=== PATIENT | male | born 1950 | race Caucasian/White ===

== ENCOUNTER 2019-04-07 18:37 | Observation (INO) ==
[2019-04-07] MEDS ORDERED: Aspirin 81 MG TAB.CHEW PO ONE (18:46)
[2019-04-07] MEDS ORDERED: Isovue-370 500 ML BOTTLE IVP ONE (19:46)
[2019-04-07 20:00] LABS: Basophils % 0.2 %; Eosinophils # 0.1 K/mcL (0.0-0.6); Eosinophils % 0.8 %; Hematocrit 39.4 % (37.5-50.1); Hemoglobin 12.2 g/dL (12.9-16.9); Immature Granulocytes % 0.5 % (0-4); Lymphocytes # 1.5 K/mcL (0.6-4.6); Lymphocytes % 14.3 %; Mean Corpuscular Volume 74.2 fL (83.0-100.0); Mean Platelet Volume 9.3 fL (9.4-12.4); Monocytes # 0.7 K/mcL (0.0-1.3); Monocytes % 6.8 %; Neutrophils # 8.3 K/mcL (1.6-8.9); Platelet Count 577 K/mcL (140-400); Red Blood Count 5.31 M/mcL (4.19-5.50); Red Cell Distribution Width 16.5 % (11.5-14.5); Segmented Neutrophils % 77.4 %; White Blood Count 10.7 K/mcL (4.3-11.1)
[2019-04-07 20:06] LABS: Albumin 3.5 g/dL (3.5-5.7); Albumin/Globulin Ratio 0.9 (1.1-2.2); Bilirubin,Direct 0.1 mg/dL (0.0-0.2); Bilirubin,Indirect 0.2 mg/dL (0.0-1.2); Bilirubin,Total 0.3 mg/dL (0.3-1.0); Globulin 3.8 g/dL (2.4-3.5); INR 1.1; Total Protein 7.3 g/dL (6.4-8.9)
[2019-04-07 20:09] LABS: Activated Partial Thrombo Time 35.5 Seconds (26.0-36.0); BUN/Creatinine Ratio 14 (6-26); Blood Urea Nitrogen 13 mg/dL (8-23); Carbon Dioxide 29 mEq/L (23-29); Chloride 97 mEq/L (98-107); Glucose 111 mg/dL (70-105); Osmolality,Calculated 279 (280-300); Potassium 4.5 mEq/L (3.5-5.1); Sodium 134 mEq/L (136-145); Troponin I < 0.03 ng/mL (< 0.04); eGFR For African Americans > 60 (> 60); eGFR For Non-African Americans > 60 (> 60)
[2019-04-07] MEDS ORDERED: Azithromycin 500 MG in 0.9 % Sodium Chloride 250 ML IVPB ONE (22:24)
[2019-04-08] MEDS ORDERED: Naloxone 0.4 MG/ML INJ IVP PRN (00:16)
[2019-04-08] MEDS ORDERED: Acetaminophen 325 MG TABLET PO PRN (00:16)
[2019-04-08] MEDS ORDERED: Ondansetron 4 MG/2 ML VIAL IVP PRN (00:16)
[2019-04-08] MEDS: Nicotine 21 MG PATCH.TD24 TD SCH (01:18)
[2019-04-08] MEDS: 0.9 % Sodium Chloride 1,000 ML IVC SCH ×2 (01:18→09:24)
[2019-04-08 02:18] LABS: Bilirubin,Urine Negative (Negative); Blood,Urine Negative (Negative); Clarity,Urine Clear (Clear); Color,Urine Yellow (Yellow); Glucose,Urine (UA) Normal (Normal); Ketones,Urine Negative (Negative); Leukocyte Esterase,Urine Negative (Negative); Nitrite,Urine Negative (Negative); Protein,Urine Negative (Neg-Trace); Specific Gravity,Urine 1.024 (1.010-1.025); Urobilinogen,Urine Normal (Normal)
[2019-04-08 05:15] LABS: INR 1.1; Prothrombin Time 12.2 Seconds (9.4-12.1)
[2019-04-08 05:18] LABS: Activated Partial Thrombo Time 35.7 Seconds (26.0-36.0)
[2019-04-08 05:28] LABS: Alanine Aminotransferase 3 Units/L (7-52); Albumin 3.1 g/dL (3.5-5.7); Albumin/Globulin Ratio 0.9 (1.1-2.2); Alkaline Phosphatase 44 Units/L (34-104); Aspartate Amino Transferase 7 Units/L (13-39); BUN/Creatinine Ratio 16 (6-26); Bilirubin,Total 0.4 mg/dL (0.3-1.0); Blood Urea Nitrogen 14 mg/dL (8-23); Calcium 10.3 mg/dL (8.6-10.3); Carbon Dioxide 27 mEq/L (23-29); Chloride 103 mEq/L (98-107); Chol/HDL Ratio 2.7 (0-4.9); Cholesterol 116 mg/dL (< 200); Globulin 3.5 g/dL (2.4-3.5); Glucose 85 mg/dL (70-105); HDL Cholesterol 43 mg/dL (40-59); LDL Cholesterol,Calculated 65 mg/dL (0-99); Magnesium 2.2 mg/dL (1.6-2.6); Osmolality,Calculated 282 (280-300); Phosphorous 3.2 mg/dL (2.7-4.5); Sodium 136 mEq/L (136-145); Total Protein 6.6 g/dL (6.4-8.9); Triglycerides 39 mg/dL (< 150); eGFR For African Americans > 60 (> 60); eGFR For Non-African Americans > 60 (> 60)
[2019-04-08] MEDS ORDERED: *HR* OxyCODONE Immed Rel 5 MG TABLET PO ONE (05:37)
[2019-04-08] MEDS: ALPRAZolam 1 MG TABLET PO PRN ×2 (05:54→16:53)
[2019-04-08] MEDS: risperiDONE 0.25 MG TABLET PO SCH ×2 (09:24→20:22)
[2019-04-08] MEDS ORDERED: cefTRIAXone 1,000 MG in Water for inj. (sterile) 10 ML IVP SCH (16:00)
[2019-04-08] MEDS ORDERED: Isovue-370 500 ML BOTTLE IVP ONE (18:49)
[2019-04-08] MEDS ORDERED: Gadolinium Contrast Agent (WT Based) IV PRN (18:49)
[2019-04-08] MEDS: Mirtazapine 15 MG TABLET PO SCH (20:23)
[2019-04-08] MEDS ORDERED: ALPRAZolam 1 MG TABLET PO SCH (21:00)
[2019-04-09] MEDS: ALPRAZolam 1 MG TABLET PO PRN ×2 (01:25→20:38)
[2019-04-09] MEDS: Nicotine 21 MG PATCH.TD24 TD SCH (01:25)
[2019-04-09 05:23] LABS: % Iron Saturation 8 % (20-55); Iron 16 mcg/dL (65-175); Transferrin 144 mg/dL (203-362)
[2019-04-09 05:41] LABS: Ferritin 166 ng/mL (20-250)
[2019-04-09 05:47] LABS: Folate 9.7 ng/mL (3.0-16.0)
[2019-04-09] MEDS: Ascorbic Acid 500 MG TABLET PO SCH (09:23)
[2019-04-09] MEDS: risperiDONE 0.25 MG TABLET PO SCH ×2 (09:23→20:37)
[2019-04-09] MEDS ORDERED: Azithromycin 500 MG in 0.9 % Sodium Chloride 250 ML IVPB SCH (16:00)
[2019-04-09] MEDS ORDERED: Gadolinium Contrast Agent (WT Based) IV PRN (16:26)
[2019-04-09] MEDS: *HR* Heparin 5,000 UNIT/ML VIAL SQ SCH (18:22)
[2019-04-09] MEDS ORDERED: Isovue-370 500 ML BOTTLE IVP ONE (20:15)
[2019-04-09] MEDS: Mirtazapine 15 MG TABLET PO SCH (20:37)
[2019-04-09] MEDS ORDERED: *HR* HYDROmorphone 2 MG TABLET PO ONE (20:44)
[2019-04-10] MEDS: Nicotine 21 MG PATCH.TD24 TD SCH (04:24)
[2019-04-10 05:14] LABS: Basophils % 0.3 %; Eosinophils # 0.1 K/mcL (0.0-0.6); Eosinophils % 1.5 %; Hematocrit 35.8 % (37.5-50.1); Immature Granulocytes % 0.5 % (0-4); Lymphocytes # 1.5 K/mcL (0.6-4.6); Lymphocytes % 16.4 %; Mean Corpuscular HGB Conc 30.7 g/dL (31.6-35.5); Mean Corpuscular Volume 74.9 fL (83.0-100.0); Mean Platelet Volume 9.4 fL (9.4-12.4); Monocytes # 0.9 K/mcL (0.0-1.3); Monocytes % 9.6 %; Neutrophils # 6.7 K/mcL (1.6-8.9); Platelet Count 510 K/mcL (140-400); Red Blood Count 4.78 M/mcL (4.19-5.50); Red Cell Distribution Width 16.6 % (11.5-14.5); Segmented Neutrophils % 71.7 %; White Blood Count 9.3 K/mcL (4.3-11.1)
[2019-04-10 05:18] LABS: BUN/Creatinine Ratio 18 (6-26); Blood Urea Nitrogen 15 mg/dL (8-23); Calcium 9.7 mg/dL (8.6-10.3); Carbon Dioxide 25 mEq/L (23-29); Chloride 104 mEq/L (98-107); Glucose 97 mg/dL (70-105); Osmolality,Calculated 281 (280-300); Potassium 3.8 mEq/L (3.5-5.1); Sodium 135 mEq/L (136-145); eGFR For African Americans > 60 (> 60); eGFR For Non-African Americans > 60 (> 60)
[2019-04-10] MEDS: *HR* Heparin 5,000 UNIT/ML VIAL SQ SCH ×2 (08:25→15:21)
[2019-04-10] MEDS: risperiDONE 0.25 MG TABLET PO SCH ×2 (08:28→20:24)
[2019-04-10] MEDS: Ascorbic Acid 500 MG TABLET PO SCH (08:28)
[2019-04-10] MEDS: ALPRAZolam 1 MG TABLET PO PRN ×2 (08:30→20:25)
[2019-04-10] MEDS: Mirtazapine 15 MG TABLET PO SCH (20:25)
[2019-04-11] MEDS: Nicotine 21 MG PATCH.TD24 TD SCH (01:31)
[2019-04-11] MEDS: *HR* Heparin 5,000 UNIT/ML VIAL SQ SCH (04:31)
[2019-04-11 04:36] LABS: Basophils % 0.2 %; Eosinophils # 0.2 K/mcL (0.0-0.6); Eosinophils % 1.9 %; Hematocrit 37.4 % (37.5-50.1); Hemoglobin 11.5 g/dL (12.9-16.9); Immature Granulocytes % 0.5 % (0-4); Lymphocytes # 1.6 K/mcL (0.6-4.6); Lymphocytes % 16.8 %; Mean Corpuscular HGB Conc 30.7 g/dL (31.6-35.5); Mean Corpuscular Hemoglobin 22.9 pg (28.0-33.3); Mean Corpuscular Volume 74.5 fL (83.0-100.0); Mean Platelet Volume 9.7 fL (9.4-12.4); Monocytes # 0.9 K/mcL (0.0-1.3); Monocytes % 9.4 %; Neutrophils # 6.8 K/mcL (1.6-8.9); Platelet Count 539 K/mcL (140-400); Red Blood Count 5.02 M/mcL (4.19-5.50); Red Cell Distribution Width 16.5 % (11.5-14.5); Segmented Neutrophils % 71.2 %; White Blood Count 9.6 K/mcL (4.3-11.1)
[2019-04-11 04:51] LABS: BUN/Creatinine Ratio 19 (6-26); Blood Urea Nitrogen 17 mg/dL (8-23); Calcium 9.9 mg/dL (8.6-10.3); Carbon Dioxide 28 mEq/L (23-29); Chloride 103 mEq/L (98-107); Glucose 117 mg/dL (70-105); Osmolality,Calculated 285 (280-300); Potassium 3.8 mEq/L (3.5-5.1); Sodium 136 mEq/L (136-145); eGFR For African Americans > 60 (> 60); eGFR For Non-African Americans > 60 (> 60)
[2019-04-11] MEDS: Ascorbic Acid 500 MG TABLET PO SCH (09:07)
[2019-04-11] MEDS: risperiDONE 0.25 MG TABLET PO SCH (09:07)
[2019-04-11 11:28] VITALS: BP 116/63
== END 2019-04-11 14:29 | disposition home or self-care (01) ==
LOC: 3BNU 18:37 → EMEROOARM 18:37 → 3BNU 22:47
PROVIDERS: ADMIT Internal Medicine Nephrology; ATTEND Internal Medicine Nephrology